=== PATIENT | female | born 1970 | race African-American/Black ===

== ENCOUNTER 2024-05-13 11:01 | Emergency (ER) | payer OTHER ==
[~2024-05-13] VITALS: Ht 182.9 cm; Wt 82.0 kg
[2024-05-13 11:05] VITALS: O2SAT 100
[2024-05-13 12:03] VITALS: TEMP 36.55848
[2024-05-13 14:50] VITALS: BP 114/75; PULSE 85; RESP 16; O2SAT 98
== END 2024-05-13 15:54 | disposition short-term general hospital (02) ==
LOC: ER 12:58
DX: E11.621 Type 2 diabetes mellitus with foot ulcer (principal); I11.0 Hypertensive heart disease with heart failure; Z88.8 Allergy status to other drugs, medicaments and biological substances; Z88.5 Allergy status to narcotic agent; I50.9 Heart failure, unspecified; Z86.73 Personal history of transient ischemic attack (TIA), and cerebral infarction without residual deficits
CPT/HCPCS: 99285; Z7610 ×3

== ENCOUNTER 2024-07-06 19:32 | Inpatient (IN) | payer OTHER ==
[~2024-07-06] VITALS: Ht 165.1 cm; Wt 109.8 kg
[2024-07-06 19:42] VITALS: O2SAT 98
[2024-07-06] MEDS ORDERED: VANCOMYCIN 1.5GM/250ML 250 ML IV SCH (20:30)
[2024-07-06] MEDS: SODIUM CHLORIDE 0.9% 1,000 ML IV ONE (20:33)
[2024-07-06 20:39] LABS: HEMATOCRIT. 35.6 % (36.0-48.0); HEMOGLOBIN. 11.4 g/dL (12.0-16.0); MEAN CORPUSCULAR HEMOGLOBIN 28.9 pg (28.0-32.0); MEAN CORPUSCULAR HGB CONC 31.9 g/dL (31.0-37.0); MEAN CORPUSCULAR VOLUME 90.4 fL (81.0-99.0); PLATELET 189 x1000/uL (130-400); RED BLOOD CELL COUNT 3.94 mill/uL (4.2-5.4); RED CELL DISTRIBUTION WIDTH 25.5 % (11.6-14.6); WHITE BLOOD COUNT 36.3 x1000/uL (4.5-11.0)
[2024-07-06 20:45] LABS: DIFFERENTIAL COMMENT 1
[2024-07-06] MEDS: PIPERACILLIN/TAZO 3.375G/50ML 100 ML IV SCH (20:51)
[2024-07-06 21:15] LABS: ERYTHROCYTE SEDIMENTATION RATE 24 mm/hr (0-30)
[2024-07-06 21:19] LABS: LACTIC ACID 4.5 mmol/L (0.4-2.0)
[2024-07-06] MEDS: VANCOMYCIN 1.5GM PMX (XELLIA) 250 ML IV NR (21:20)
[2024-07-06 21:21] LABS: ANISOCYTOSIS 2+; PLATELET ESTIMATE NORMAL
[2024-07-06] MEDS ORDERED: PIPERACILLIN/TAZO 3.375G/100ML 100 ML IV SCH (22:00)
[2024-07-06 22:20] LABS: CARBON DIOXIDE 13 mEq/L (21-32); CHLORIDE 90 mEq/L (98-107); SODIUM 122 mEq/L (136-145)
[2024-07-06 22:26] LABS: CREATININE 1.3 mg/dL (0.6-1.0); TROPONIN I HIGH SENSITIVITY 16 ng/L (3.0-34)
[2024-07-06 22:27] LABS: ALANINE AMINOTRANSFERASE < 7 IU/L (10-49)
[2024-07-06 22:28] LABS: ALBUMIN 1.5 g/dL (3.2-4.8); ASPARTATE AMINOTRANSFERASE 17 IU/L (<34); BILIRUBIN DIRECT 8.2 mg/dL (<=3.0); PHOSPHORUS 2.4 mg/dL (2.5-4.9)
[2024-07-06 22:34] LABS: GLUCOSE 64 mg/dL (70-105); UREA NITROGEN BLOOD 31 mg/dL (9-23)
[2024-07-06 22:36] LABS: BILIRUBIN TOTAL 10.9 mg/dL (0.1-1.0)
[2024-07-06 22:55] LABS: CALCIUM 5.7 mg/dL (8.7-10.4); POTASSIUM 2.8 mEq/L (3.5-5.1)
[2024-07-06] MEDS ORDERED: ONDANSETRON HCL 4MG/2ML INJ IV PRN (23:15)
[2024-07-06] MEDS ORDERED: IPRATROPIUM/ALBUTEROL 0.5-3(2.5)MG/3ML NEB HHN PRN (23:15)
[2024-07-06] MEDS ORDERED: DOCUSATE SODIUM 100MG CAPSULE PO PRN (23:15)
[2024-07-06] MEDS ORDERED: GUAIFENESIN 200MG/10ML SUGAR FREE UDC PO PRN (23:15)
[2024-07-06] MEDS ORDERED: ACETAMINOPHEN 325MG TABLET PO PRN ×2 (23:15)
[2024-07-06] MEDS: KCL 20MEQ/100ML PREMIX 100 ML IV SCH (23:47)
[2024-07-06] MEDS: NOREPINEPHRINE 8MG/250ML PMX 250 ML IV ONE ×2 (23:48)
[2024-07-06] MEDS: CALCIUM GLUCONATE 1GM PREMIX 50 ML IV NR (23:55)
[2024-07-07 00:02] LABS: INR 1.5; PROTHROMBIN TIME 16.1 sec (9.6-11.0)
[2024-07-07] MEDS: MAGNESIUM 4 G PREMIX 100 ML IV NR ×2 (02:54→11:32)
[2024-07-07] MEDS ORDERED: SODIUM BICARBONATE 8.4% 50MEQ/50ML SYR IV NR (03:45)
[2024-07-07] MEDS: ALBUMIN HUMAN 25GM/100ML (25%) IV SCH (06:57)
[2024-07-07 07:03] LABS: CHLORIDE 99 mEq/L (98-107); SODIUM 132 mEq/L (136-145)
[2024-07-07 07:04] LABS: CALCIUM 9.7 mg/dL (8.7-10.4); CARBON DIOXIDE 18 mEq/L (21-32)
[2024-07-07 07:08] LABS: HEMATOCRIT. 39.1 % (36.0-48.0); HEMOGLOBIN. 12.1 g/dL (12.0-16.0); MEAN CORPUSCULAR HEMOGLOBIN 29.2 pg (28.0-32.0); MEAN CORPUSCULAR VOLUME 94.3 fL (81.0-99.0); MEAN PLATELET VOLUME 9.1 fl (7.4-10.4); PLATELET 239 x1000/uL (130-400); RED BLOOD CELL COUNT 4.14 mill/uL (4.2-5.4); RED CELL DISTRIBUTION WIDTH 26.6 % (11.6-14.6); WHITE BLOOD COUNT 39.4 x1000/uL (4.5-11.0)
[2024-07-07 07:09] LABS: AMMONIA < 17 uMol/L (<32); GLUCOSE 66 mg/dL (70-105); TRIGLYCERIDE 266 mg/dL (0-150); UREA NITROGEN BLOOD 44 mg/dL (9-23)
[2024-07-07 07:10] LABS: LDL CHOLESTEROL 80 mg/dL (5-100)
[2024-07-07 07:11] LABS: CHOLESTEROL 148 mg/dL (<200); CREATINE KINASE 23 IU/L (34-145); DIFFERENTIAL COMMENT 1; HDL CHOLESTEROL < 20 mg/dL (>65)
[2024-07-07 07:14] LABS: THYROID STIMULATING HORMONE 2.36 uIU/mL (0.55-4.78)
[2024-07-07 07:56] LABS: CREATININE 2.2 mg/dL (0.6-1.0); POTASSIUM 5.4 mEq/L (3.5-5.1)
[2024-07-07] MEDS: PIPERACILLIN/TAZO 3.375G/100ML 100 ML IV SCH (08:16)
[2024-07-07 08:40] LABS: ANISOCYTOSIS 2+; PLATELET ESTIMATE NORMAL; TOXIC VACUOLATION 2+
[2024-07-07] MEDS ORDERED: FAMOTIDINE 20MG/2ML VIAL IV SCH (09:00)
[2024-07-07] MEDS ORDERED: MEROPENEM 1,000 MG in SODIUM CHLORIDE 0.9% 100 ML IV SCH (09:30)
[2024-07-07] MEDS: BLOOD SUGAR DIAGNOSTIC STRIP TEST SCH (09:34)
[2024-07-07] MEDS: DEXTROSE 50% WATER 50ML SYRINGE IV PRN (09:37)
[2024-07-07] MEDS: SODIUM BICARBONATE 8.4% 50MEQ/50ML SYR IV NR (09:38)
[2024-07-07] MEDS: ENOXAPARIN 30MG/0.3ML SYR SUBCUT SCH (09:38)
[2024-07-07 09:54] LABS: PHOSPHORUS 4.6 mg/dL (2.5-4.9)
[2024-07-07 10:51] LABS: BG BASE EXCESS -11.5 mmol/L (-2.0-3.0); BG CARBOXYHEMOGLOBIN 2.2 % (0.5-1.5); BG FRACTION INSPIRED OXYGEN 21; BG HCO3 ACT 12.8 mmol/L (21.0-28.0); BG METHEMOGLOBIN 0.3 % (0.5-1.5); BG OXYGEN SATURATION 94.9 % (94.0-98.0); BG OXYHEMOGLOBIN 92.5 % (94.0-98.0); BG PCO2 25.1 mmHg (32.0-45.0); BG PH 7.324 (7.350-7.450); BG PO2 79.6 mmHg (83.0-108.0); BG SAMPLE SITE RIGHT RADIAL; BG TOTAL HEMOGLOBIN 12.8 g/dL (12.0-16.0); BG VENT MODE ROOM AIR
[2024-07-07] MEDS: PANTOPRAZOLE SODIUM 40 MG/VIAL IV SCH (10:59)
[2024-07-07] MEDS: SODIUM ZIRCONIUM CYCLOSILICATE 10GM/PACKET PO NR (10:59)
[2024-07-07] MEDS: MEROPENEM 1GM/50ML DUPLEX 50 ML IV SCH (11:04)
[2024-07-07] MEDS: SODIUM PHOSPHATE 15 MMOL in SODIUM CHLORIDE 0.9% 245 ML IV NR (11:32)
[2024-07-07 12:05] LABS: LACTIC ACID 7.2 mmol/L (0.4-2.0)
[2024-07-07] MEDS: DEXT 5%/0.9% NACL 1,000 ML IV SCH (12:46)
[2024-07-07 16:05] LABS: CLARITY URINE TURBID (CLEAR); COLOR URINE DARK YELLOW (YELLOW); GLUCOSE URINE NEGATIVE (NEGATIVE); KETONES URINE NEGATIVE (NEGATIVE); LEUKOCYTE ESTERASE URINE 3+ (NEGATIVE); NITRITE URINE POSITIVE (NEGATIVE); OCCULT BLOOD URINE 2+ (NEGATIVE); PROTEIN URINE 2+ (NEGATIVE); SPECIFIC GRAVITY URINE 1.021 (1.005-1.030)
[2024-07-07 16:43] LABS: *AMPHETAMINES SCREEN URINE NEGATIVE (NEGATIVE); *BENZODIAZEPINES SCREEN URINE NEGATIVE (NEGATIVE)
[2024-07-07 16:44] LABS: *BARBITURATES SCREEN URINE NEGATIVE (NEGATIVE); *COCAINE SCREEN URINE NEGATIVE (NEGATIVE); CANNABINOID URINE SCREEN NEGATIVE (NEGATIVE); ECSTASY MDMA SCREEN URINE NEGATIVE (NEGATIVE); METHADONE URINE SCREEN NEGATIVE (NEGATIVE); OPIATES URINE SCREEN NEGATIVE (NEGATIVE); PHENCYCLIDINE URINE SCREEN NEGATIVE (NEGATIVE)
[2024-07-07 16:51] LABS: ALANINE AMINOTRANSFERASE 28 IU/L (10-49); ALBUMIN 2.8 g/dL (3.2-4.8); ASPARTATE AMINOTRANSFERASE 139 IU/L (<34); BILIRUBIN DIRECT 13.5 mg/dL (<=3.0); CREATINE KINASE 58 IU/L (34-145); LACTATE DEHYDROGENASE 629 IU/L (120-246)
[2024-07-07 16:55] LABS: BILIRUBIN TOTAL 19.9 mg/dL (0.1-1.0); PROTEIN TOTAL 7.2 g/dL (6.0-8.3)
[2024-07-07 17:10] LABS: BACTERIA URINE 4+; SQUAMOUS EPITHELIAL CELL URINE 1+ /lpf (RARE/1+)
[2024-07-07 17:11] LABS: WBC URINE TNTC /hpf (0-2)
[2024-07-07 17:20] VITALS: RESP 20; O2SAT 99
[2024-07-08] MEDS: VANCOMYCIN 750MG/150ML (BAXTER) IV NR (02:48)
[2024-07-08 04:28] LABS: CARBON DIOXIDE 17 mEq/L (21-32); CHLORIDE 103 mEq/L (98-107); POTASSIUM 5.2 mEq/L (3.5-5.1); SODIUM 135 mEq/L (136-145)
[2024-07-08 04:29] LABS: CALCIUM 9.4 mg/dL (8.7-10.4)
[2024-07-08 04:31] LABS: HEMATOCRIT. 32.9 % (36.0-48.0); HEMOGLOBIN. 10.5 g/dL (12.0-16.0); MEAN CORPUSCULAR HEMOGLOBIN 29.7 pg (28.0-32.0); MEAN CORPUSCULAR HGB CONC 32.1 g/dL (31.0-37.0); MEAN CORPUSCULAR VOLUME 92.5 fL (81.0-99.0); MEAN PLATELET VOLUME 8.7 fl (7.4-10.4); PLATELET 119 x1000/uL (130-400); RED BLOOD CELL COUNT 3.55 mill/uL (4.2-5.4); RED CELL DISTRIBUTION WIDTH 26.4 % (11.6-14.6); WHITE BLOOD COUNT 28.5 x1000/uL (4.5-11.0)
[2024-07-08 04:34] LABS: CREATININE 2.4 mg/dL (0.6-1.0); GLUCOSE 139 mg/dL (70-105); UREA NITROGEN BLOOD 47 mg/dL (9-23)
[2024-07-08 04:35] LABS: ALANINE AMINOTRANSFERASE 35 IU/L (10-49)
[2024-07-08 04:36] LABS: ALBUMIN 2.9 g/dL (3.2-4.8); ASPARTATE AMINOTRANSFERASE 144 IU/L (<34); BILIRUBIN TOTAL 20.8 mg/dL (0.1-1.0); PHOSPHORUS 5.1 mg/dL (2.5-4.9); PROTEIN TOTAL 7.1 g/dL (6.0-8.3)
[2024-07-08 05:21] LABS: LACTIC ACID 3.7 mmol/L (0.4-2.0)
[2024-07-08 05:31] LABS: DIFFERENTIAL COMMENT 1
[2024-07-08 05:36] LABS: INR 1.8
[2024-07-08 05:47] LABS: HEPATITIS B SURFACE ANTIGEN NEGATIVE (Negative)
[2024-07-08 06:07] LABS: HEPATITIS A AB IGM NEGATIVE (Negative)
[2024-07-08 06:08] LABS: HEPATITIS B CORE AB IGM NEGATIVE (Negative); HEPATITIS C AB NON REACTIVE (Neg) (Negative)
[2024-07-08 07:32] LABS: PLATELET ESTIMATE SLIGHTLY DECREASED
[2024-07-08 07:33] LABS: ANISOCYTOSIS 2+; TARGET CELLS FEW; TOXIC VACUOLATION 1+
[2024-07-08] MEDS: SODIUM ZIRCONIUM CYCLOSILICATE 10GM/PACKET PO NR (08:15)
[2024-07-08] MEDS: MEROPENEM 1GM/50ML DUPLEX 50 ML IV SCH ×2 (08:28→21:09)
[2024-07-08 11:18] VITALS: BP 117/90; PULSE 99; RESP 18; TEMP 37.0852
[2024-07-08 12:00] VITALS: BP 117/90; PULSE 99; RESP 18; TEMP 37.16964; O2SAT 99
[2024-07-08] MEDS ORDERED: MEROPENEM 1G/100ML 100 ML IV SCH (14:00)
[2024-07-08 16:00] VITALS: BP 95/44; PULSE 69; RESP 18; TEMP 36.44736; O2SAT 98
[2024-07-08] MEDS: MIDODRINE HCL 5MG TABLET PO SCH (16:21)
[2024-07-08 17:05] LABS: HEMATOCRIT. 36.1 % (36.0-48.0); HEMOGLOBIN. 11.1 g/dL (12.0-16.0); MEAN CORPUSCULAR HEMOGLOBIN 28.8 pg (28.0-32.0); MEAN CORPUSCULAR HGB CONC 30.7 g/dL (31.0-37.0); MEAN CORPUSCULAR VOLUME 93.8 fL (81.0-99.0); PLATELET 125 x1000/uL (130-400); RED BLOOD CELL COUNT 3.84 mill/uL (4.2-5.4); RED CELL DISTRIBUTION WIDTH 26.1 % (11.6-14.6); WHITE BLOOD COUNT 33.6 x1000/uL (4.5-11.0)
[2024-07-08 17:12] LABS: DIFFERENTIAL COMMENT 1
[2024-07-08 17:25] LABS: CREATINE KINASE 53 IU/L (34-145)
[2024-07-08 18:06] LABS: PLATELET ESTIMATE NORMAL
[2024-07-08] MEDS: PHYTONADIONE 10MG/ML INJ SUBCUT SCH (18:13)
[2024-07-08 20:25] VITALS: BP 97/54; PULSE 79; RESP 20; TEMP 36.61404; O2SAT 98
[2024-07-09] VITALS (21 sets, daily range): BP systolic 80–129; BP diastolic 56–103; PULSE 48–200; RESP 11–22; TEMP 35.8362–36.44736; O2SAT 95–100
[2024-07-09 00:20] LABS: INR 1.8; PROTHROMBIN TIME 18.9 sec (9.6-11.0)
[2024-07-09 00:30] LABS: CREATINE KINASE 25 IU/L (34-145)
[2024-07-09 10:18] LABS: HEMOGLOBIN. 11.4 g/dL (12.0-16.0); MEAN CORPUSCULAR HEMOGLOBIN 29.2 pg (28.0-32.0); MEAN CORPUSCULAR HGB CONC 29.2 g/dL (31.0-37.0); MEAN PLATELET VOLUME 9.1 fl (7.4-10.4); PLATELET 100 x1000/uL (130-400); RED CELL DISTRIBUTION WIDTH 26.5 % (11.6-14.6)
[2024-07-09 10:23] LABS: CHLORIDE 102 mEq/L (98-107); POTASSIUM 5.4 mEq/L (3.5-5.1); SODIUM 134 mEq/L (136-145)
[2024-07-09 10:24] LABS: CALCIUM 9.9 mg/dL (8.7-10.4); CARBON DIOXIDE 13 mEq/L (21-32)
[2024-07-09 10:29] LABS: CREATININE 2.9 mg/dL (0.6-1.0); GLUCOSE 159 mg/dL (70-105); UREA NITROGEN BLOOD 46 mg/dL (9-23)
[2024-07-09 10:30] LABS: LACTATE DEHYDROGENASE 668 IU/L (120-246)
[2024-07-09 10:31] LABS: ALANINE AMINOTRANSFERASE 145 IU/L (10-49); ALBUMIN 3.5 g/dL (3.2-4.8); ASPARTATE AMINOTRANSFERASE 736 IU/L (<34); BILIRUBIN DIRECT > 15.0 mg/dL (<=3.0); PHOSPHORUS 5.8 mg/dL (2.5-4.9)
[2024-07-09 10:32] LABS: PROTEIN TOTAL 7.4 g/dL (6.0-8.3)
[2024-07-09 10:33] LABS: DIFFERENTIAL COMMENT 1
[2024-07-09] MEDS: SODIUM BICARBONATE 8.4% 50MEQ/50ML SYR IV SCH (11:50)
[2024-07-09] MEDS: SODIUM BICARBONATE 100 MEQ in DEXTROSE 5% WATER 900 ML IV SCH (12:11)
[2024-07-09] MEDS: ATROPINE SULFATE 1MG/ML VIAL IV PRN (12:36)
[2024-07-09 13:31] LABS: BG BASE EXCESS -13.2 mmol/L (-2.0-3.0); BG CARBOXYHEMOGLOBIN 1.8 % (0.5-1.5); BG DEOXYHEMOGLOBIN 2.8 % (0.0-5.0); BG FRACTION INSPIRED OXYGEN 28; BG HCO3 ACT 12.6 mmol/L (21.0-28.0); BG METHEMOGLOBIN 0.3 % (0.5-1.5); BG OXYGEN SATURATION 97.1 % (94.0-98.0); BG OXYHEMOGLOBIN 95.1 % (94.0-98.0); BG PCO2 29.3 mmHg (32.0-45.0); BG PH 7.252 (7.350-7.450); BG PO2 97.2 mmHg (83.0-108.0); BG SAMPLE SITE RIGHT RADIAL; BG TOTAL HEMOGLOBIN 11.3 g/dL (12.0-16.0); BG VENT MODE NASAL CANNULA
[2024-07-09] MEDS: SODIUM BICARBONATE 8.4% 50MEQ/50ML SYR IV NR (15:42)
[2024-07-09] MEDS: MIDODRINE HCL 5MG TABLET PO SCH (16:27)
[2024-07-09 16:58] LABS: HYPOCHROMASIA 1+; MICROCYTOSIS 1+; PLATELET ESTIMATE SLIGHTLY DECREASED; TARGET CELLS 2+
[2024-07-09] MEDS ORDERED: NOREPINEPHRINE 8MG/250ML PMX 250 ML IV PRN (18:15)
[2024-07-09] MEDS ORDERED: ATROPINE SULFATE 1MG/ML VIAL IV PRN (18:15)
[2024-07-09] MEDS ORDERED: MIDAZOLAM 100MG/100ML PMX 100 ML IV PRN (18:15)
[2024-07-09] MEDS ORDERED: FENTANYL 2500MCG/250ML PMX 250 ML IV PRN (18:15)
[2024-07-09] MEDS: NOREPINEPHRINE 8MG/250ML PMX 250 ML IV PRN (19:08)
== END 2024-07-10 00:50 | DRG 871 ==
LOC: ER 19:32 → MICUSO 22:41 → EDBEDREQSVC 07-08 07:37 → 7WST 07-08 10:57 → 5EST 07-09 10:12
PROVIDERS: ADMIT Hospitalist; ATTEND Hospitalist
PROC: 02HV33Z Insertion of Infusion Device into Superior Vena Cava, Percutaneous Approach (ICD-10-PCS; principal; 2024-07-06)
PROC: B548ZZA Ultrasonography of Superior Vena Cava, Guidance (ICD-10-PCS; 2024-07-06)
PROC: 5A12012 Performance of Cardiac Output, Single, Manual (ICD-10-PCS; 2024-07-09)
PROC: 0BH17EZ Insertion of Endotracheal Airway into Trachea, Via Natural or Artificial Opening (ICD-10-PCS; 2024-07-09)
DX: A41.9 Sepsis, unspecified organism (principal); G92.8 Other toxic encephalopathy; J96.01 Acute respiratory failure with hypoxia; N17.0 Acute kidney failure with tubular necrosis; R65.21 Severe sepsis with septic shock; E87.20 Acidosis, unspecified; D68.9 Coagulation defect, unspecified; E87.1 Hypo-osmolality and hyponatremia; J98.11 Atelectasis; N39.0 Urinary tract infection, site not specified; R18.8 Other ascites; E86.9 Volume depletion, unspecified; I50.9 Heart failure, unspecified; I11.0 Hypertensive heart disease with heart failure; E11.51 Type 2 diabetes mellitus with diabetic peripheral angiopathy without gangrene; E11.649 Type 2 diabetes mellitus with hypoglycemia without coma; E87.8 Other disorders of electrolyte and fluid balance, not elsewhere classified; E83.51 Hypocalcemia; E83.39 Other disorders of phosphorus metabolism; E83.42 Hypomagnesemia; D69.6 Thrombocytopenia, unspecified; E87.6 Hypokalemia; E88.09 Other disorders of plasma-protein metabolism, not elsewhere classified; K59.00 Constipation, unspecified; Z86.73 Personal history of transient ischemic attack (TIA), and cerebral infarction without residual deficits; K76.1 Chronic passive congestion of liver; E87.5 Hyperkalemia; K82.8 Other specified diseases of gallbladder; B96.89 Other specified bacterial agents as the cause of diseases classified elsewhere; D53.9 Nutritional anemia, unspecified; E83.41 Hypermagnesemia; Z79.4 Long term (current) use of insulin; Z79.899 Other long term (current) drug therapy; Z88.5 Allergy status to narcotic agent; R00.1 Bradycardia, unspecified
CPT/HCPCS: 31500; 36415; 36600; 71045; 72170; 73630; 74176; 76705; 76770; 80048; 80053; 80076; 80202; 82248; 82375; 82550; 82805; 82962; 83036; 83605; 83615; 83735; 83880; 84100; 84145; 84484; 85025; 85651; 86705; 86709; 86850; 86900; 87070; 87077; 87186; 87340; 92950; 93005; 93923; 93970; 93971; 99291; A4606; A4663; C1893; J0461; J0610; J1650; J2185; J2470; J2543; J3370; J3430; J3475; J3480; J3490; J7030; J7050; J7070; P9047